=== PATIENT | male | born 1940 | race Caucasian/White ===

== ENCOUNTER 2024-12-27 11:00 | Emergency (ER) | payer MEDICARE, OTHER ==
[~2024-12-27] VITALS: Ht 177.8 cm; Wt 83.8 kg
[2024-12-27] MEDS ORDERED: IBLOOD GLUCOSE TEST STRIP 1 EA TEST XX ONE (11:15)
[2024-12-27 11:23] LABS: BASOPHILS 0.2 % (0.2-1.2); EOSINOPHILS 1.0 % (0.8-7.0); LYMPHOCYTES 28.9 % (21.8-53.1); MCH 33.3 PG (25.7-32.2); MCHC 33.4 g/dL (32.3-36.5); MCV 99.6 fL (79.0-92.2); MONOCYTES 8.3 % (5.3-12.2); NEUTROPHILS 61.3 % (34.0-67.9); RBC 4.81 M/uL (4.63-6.08)
[2024-12-27 11:42] LABS: ALT (SGPT) 32.0 U/L (14-59); AST (SGOT) 20.0 U/L (15-37); GLOMERULAR FILTRATION RATE,EST 85.0 mL/min (>60); PROTEIN, TOTAL 6.8 g/dL (6.4-8.2); UREA NITROGEN 11.0 mg/dL (7-18)
[2024-12-27] MEDS ORDERED: diazePAM 5 MG TAB PO ONE (11:45)
[2024-12-27] MEDS ORDERED: MOTION SICKNESS25 M1 PO (11:56)
[2024-12-27] MEDS ORDERED: LIPITOR40 MG PO (11:58)
[2024-12-27] MEDS ORDERED: VALIUM2 MG PO (12:32)
[2024-12-27 13:02] VITALS: BP 180/89
--- NOTE | 2024-12-28 21:16 | EKG ---
[facility] [address] [facility] [place] [address] Signed Sinus bradycardia with 1st degree AV block Otherwise normal ECG No previous ECGs available Confirmed by Carlos Enrique Latham MD () on 12/28/2024 9:16:12 PM Electronically Signed By: CARLOS ENRIQUE LATHAM MD [id number] PATIENT NAME: MAGDA BARBA Electrocardiogram DATE OF : 40 PHYSICIAN: CARLOS ENRIQUE LATHAM MD REPORT #: [id number] REPORT IS CONFIDENTIAL AND NOT TO BE RELEASED WITHOUT AUTHORIZATION
== END 2024-12-27 13:03 | disposition home or self-care (01) ==
LOC: ED 11:00
PROVIDERS: Emergency Medicine
DX: R42 Dizziness and giddiness (principal); I10 Essential (primary) hypertension; Z79.899 Other long term (current) drug therapy; Z88.8 Allergy status to other drugs, medicaments and biological substances
CPT/HCPCS: 36415; 80053; 83735; 84484; 85025; 93005; 93010; 99283